=== PATIENT | male | born 1960 | race Caucasian/White ===

== ENCOUNTER 2019-12-24 00:21 | Emergency (ER) | payer BC ==
[~2019-12-24] VITALS: Ht 177.8 cm; Wt 86.2 kg
[2019-12-24] MEDS ORDERED: NEXIUM20 M1 PO (00:32)
[2019-12-24] MEDS ORDERED: XANAX1 MG PO (00:32)
[2019-12-24] MEDS ORDERED: AMBIEN5 MG PO (00:32)
[2019-12-24 02:16] VITALS: BP 120/75
== END 2019-12-24 02:16 | disposition home or self-care (01) ==
LOC: M.ERS 00:21
DX: S01.81XA Laceration without foreign body of other part of head, initial encounter (principal); F10.129 Alcohol abuse with intoxication, unspecified; Y90.1 Blood alcohol level of 20-39 mg/100 ml; F17.210 Nicotine dependence, cigarettes, uncomplicated; W22.8XXA Striking against or struck by other objects, initial encounter; Y93.89 Activity, other specified; Y92.89 Other specified places as the place of occurrence of the external cause; Y99.8 Other external cause status